=== PATIENT | female | born 1955 | race Hispanic/Latino ===

== ENCOUNTER → 2023-08-02 | Outpatient (REF) | payer MEDICARE ==
[~2023-08-02] MED LIST: ACETAMINOPHEN325 M1 PO; AMLODIPINE BESY10 MG PO; ATORVASTATIN CA20 MG PO; COLACE100 M1 PO; COREG12.5 MG PO; DICLOFENAC SODI75 MG PO; DICYCLOMINE HCL10 MG PO; DOCUSATE SODIU100 MG PO; ELIQUIS5 MG PO; FUROSEMIDE40 MG PO; LEVOTHYROXINE50 MCG PO; LOPERAMIDE2 MG PO; LOSARTAN POTAS100 MG PO; NEURONTIN400 MG PO; OMEPRAZOLE40 MG PO; ONDANSETRON ODT4 MG PO; POLYETHYLENE GL17 GM PO; PROPOFOL IV EMULSION 0 ML IV ONE; SPIRONOLACTONE25 MG PO
[2023-08-02 12:50] LABS: BASOPHILS % 0.4 % (0.0-1.0); EOSINOPHILS # (AUTO) 0.1 (0.0-0.4); EOSINOPHILS % 1.5 % (0.0-6.0); HEMATOCRIT 43.6 % (38.2-49.6); HEMOGLOBIN 13.1 g/dL (14.0-18.0); LYMPHOCYTES # (AUTO) 1.8 (1.0-3.2); LYMPHOCYTES % 22.4 % (18.0-39.1); MEAN CORPUSCULAR HEMOGLOBIN 26.3 pg (28-32); MEAN CORPUSCULAR VOLUME 87.4 fL (81-99); MONOCYTES # (AUTO) 0.5 (0.2-0.8); MONOCYTES % 6.5 % (4.4-11.3); NEUTROPHILS # (AUTO) 5.5 (2.1-6.9); PLATELET COUNT 188 x10e3/uL (140-360); RED BLOOD COUNT 4.99 x10e6/uL (4.3-5.7); RED CELL DISTRIBUTION WIDTH 14.5 % (11.7-14.4); WHITE BLOOD COUNT 8.02 x10e3/uL (4.8-10.8)
== END | disposition home or self-care (01) ==
LOC: LAB 12:48 → EDSEX 08-05 11:00 → EDSTATUS 08-05 11:00 → OR 08-05 12:25
PROVIDERS: ATTEND Internal Medicine Gastroenterology
DX: K62.5 Hemorrhage of anus and rectum (principal); K59.00 Constipation, unspecified
CPT/HCPCS: 36415; 85025; 93005